=== PATIENT | female | born 1965 | race Caucasian/White ===

== ENCOUNTER → 2016-05-18 | Outpatient (CLI) | payer OTHER ==
--- NOTE | 2016-05-18 13:04 | XR ---
EXAMINATION TYPE: XR foot complete LT DATE OF EXAM: 05/18/2016 12:48 PM CLINICAL HISTORY: pain TECHNIQUE: Frontal, lateral and oblique images of the left foot are obtained. COMPARISON: None. FINDINGS: There is no acute fracture/dislocation evident. Degenerative narrowing first metatarsal ph alangeal joint. The overlying soft tissue appears unremarkable. IMPRESSION: There is no acute fracture or dislocation. ICD 10 NO FRACTURE, INITIAL EVALUATION
== END | disposition home or self-care (01) ==
LOC: RADXRMAIN 12:35
PROVIDERS: ATTEND Nurse Practitioner Family
DX: M79.672 Pain in left foot (principal); M10.072 Idiopathic gout, left ankle and foot

== ENCOUNTER → 2020-03-22 | Outpatient (CLI) | payer OTHER ==
--- NOTE | 2020-03-22 11:21 | XR ---
EXAMINATION TYPE: XR foot complete LT DATE OF EXAM: 03/22/2020 COMPARISON: 05/18/2016 HISTORY: 55-year-old female S90.32XA TECHNIQUE: 3 views FINDINGS: 2 fixation screws across the first TMT joint. 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 Moderate degenerative change first MTP joint, progressed from 2017 with greater degree of subchondra l sclerosis and cystic change. Small to moderate-sized plantar calcaneal spur. No acute fracture, sub luxation, or dislocation seen. Mild degenerative change second MTP joint, new from 2017. IMPRESSION: 1. Small to moderate-sized calcaneal heel spur. 2. Moderate first MTP joint OA, progressed from 2017. Mild second MTP joint OA, new from 2017. 3. Interval surgical arthrodesis across the first TMT joint with satisfactory bony fusion. 4. No acute osseous abnormality seen.
== END | disposition home or self-care (01) ==
LOC: RADXRMAIN 10:37 → EDSTATUS 10:45
PROVIDERS: ATTEND Emergency Medicine
DX: M19.072 Primary osteoarthritis, left ankle and foot (principal); M77.32 Calcaneal spur, left foot; Z98.1 Arthrodesis status

== ENCOUNTER → 2020-03-30 | Outpatient (CLI) | payer OTHER ==
--- NOTE | 2020-03-31 09:19 | MM ---
Reason for exam: screening (asymptomatic). Last mammogram was performed 5 years and 6 months ago. History: Patient is postmenopausal. Family history of breast cancer in 2 paternal aunts at age 40. Benign left mammotome panel of the left breast, March 05, 2009. Physical Findings: A clinical breast exam by your physician is recommended on an annual basis and results should be correlated with mammographic findings. MG 3D Screening Mammo W/Cad Bilateral CC and MLO view(s) were taken. Prior study comparison: September 18, 2014, left breast MG work up mamm w CAD LT. September 09, 2014, bilateral MG screening mammo w CAD. There are scattered fibroglandular densities. No significant changes when compared with prior studies. ASSESSMENT: Benign, BI-RAD 2 RECOMMENDATION: Routine screening mammogram of both breasts in 1 year.
== END | disposition home or self-care (01) ==
LOC: RADMAMWWP 11:01
PROVIDERS: ATTEND Family Medicine
DX: Z12.31 Encounter for screening mammogram for malignant neoplasm of breast (principal)
CPT/HCPCS: 77063; 77067

== ENCOUNTER → 2020-04-22 | Outpatient (CLI) | payer OTHER ==
[2020-04-22 09:55] LABS: Basophils # (A) 0.1 k/uL (0-0.2); Basophils % (A) 1 %; Eosinophils # (A) 0.2 k/uL (0-0.7); Eosinophils % (A) 2 %; HCT 44.8 % (34.0-46.0); HGB 15.4 gm/dL (11.4-16.0); Lymphocytes # (A) 2.7 k/uL (1.0-4.8); Lymphocytes % (A) 27 %; MCH 29.4 pg (25.0-35.0); MCHC 34.3 g/dL (31.0-37.0); MCV 85.8 fL (80.0-100.0); Mean Platelet Volume 8.1; Monocytes # (A) 0.5 k/uL (0-1.0); Monocytes % (A) 5 %; Neutrophils # (A) 6.4 k/uL (1.3-7.7); Neutrophils % (A) 64 %; Platelet Count 289 k/uL (150-450); RBC 5.23 m/uL (3.80-5.40); RDW 12.7 % (11.5-15.5); WBC 10.1 k/uL (3.8-10.6)
[2020-04-22 10:24] LABS: Albumin 4.4 g/dL (3.5-5.0); Calcium 10.3 mg/dL (8.4-10.2); Potassium 4.3 mmol/L (3.5-5.1); Total Bilirubin 0.7 mg/dL (0.2-1.3); Total Protein 7.5 g/dL (6.3-8.2)
[2020-04-22 10:39] LABS: T4, Free (Free Thyroxine) 1.14 ng/dL (0.78-2.19)
--- NOTE | 2020-04-22 20:49 | BD ---
EXAMINATION TYPE: Axial Bone Density DATE OF EXAM: 04/22/2020 COMPARISON: NONE CLINICAL HISTORY: Postmenopausal female. Height: 66.2 IN Weight: 246 LBS FRAX RISK QUESTIONS: History of Fracture in Adulthood: LT FOOT FX AGE 51 Secondary Osteoporosis: 3. Menopause before 45: PARTIAL HYST AGE 34 RISK FACTORS HISTORY OF: Family History of Osteoporosis: YES GRANDMOTHER,MOTHER, AUNTS X4 Active: YES Diet low in dairy products/other sources of calcium: YES Postmenopausal woman: PARTIAL HYST AGE 34 MEDICATIONS: Additional Medications: BLOOD PRESSURE MEDS, EXAM MEASUREMENTS: Bone mineral densitometry was performed using the [employer] System. Bone mineral density as measured about the Lumbar spine is: ----- L1-L4(G/cm2): 1.157 T Score Values are as follows: ----- L2: -0.2 ----- L3: 0.1 ----- L4: 0.3 ----- L1-L4: -0.2 Bone mineral density BASELINE Bone mineral density about the R hip (g/cm2): 0.922 Bone mineral density about the L hip (g/cm2): 0.921 T Score values are as follows: -----R Neck: -0.8 -----L Neck: -0.8 -----R Total: -0.4 -----L Total: -0.6 Bone mineral density BASELINE IMPRESSION: Normal (Values between +1 and -1 indicate normal bone mass). Consider repeating this study in 5 year s or sooner if there is some new clinical indication. NOTE: T-SCORE=SD OF THE YOUNG ADULT MEAN.
== END | disposition home or self-care (01) ==
LOC: RADBDWWP 08:44
PROVIDERS: ATTEND Family Medicine
DX: Z13.820 Encounter for screening for osteoporosis (principal); Z00.00 Encounter for general adult medical examination without abnormal findings; E55.9 Vitamin D deficiency, unspecified
CPT/HCPCS: 36415; 77080; 80053; 80061; 82306; 84439; 84443; 85025

== ENCOUNTER → 2021-04-04 | Outpatient (CLI) | payer OTHER ==
--- NOTE | 2021-04-06 12:05 | MM ---
Reason for exam: screening (asymptomatic). Last mammogram was performed 1 year ago. History: Patient is postmenopausal. Family history of breast cancer in 2 paternal aunts at age 40. Benign left mammotome panel of the left breast, March 05, 2009. Physical Findings: A clinical breast exam by your physician is recommended on an annual basis and results should be correlated with mammographic findings. MG 3D Screening Mammo W/Cad Bilateral CC and MLO view(s) were taken. Prior study comparison: March 30, 2020, bilateral MG 3d screening mammo w/cad. September 18, 2014, left breast MG work up mamm w CAD LT. There are scattered fibroglandular densities. No significant changes when compared with prior studies. ASSESSMENT: Negative, BI-RAD 1 RECOMMENDATION: Routine screening mammogram of both breasts in 1 year.
== END | disposition home or self-care (01) ==
LOC: RADMAMWWP 15:13
PROVIDERS: ATTEND Family Medicine
DX: Z12.31 Encounter for screening mammogram for malignant neoplasm of breast (principal); Z80.3 Family history of malignant neoplasm of breast; Z78.0 Asymptomatic menopausal state
CPT/HCPCS: 77063; 77067

== ENCOUNTER → 2022-10-12 | Outpatient (CLI) | payer BC ==
--- NOTE | 2022-10-13 20:19 | MM ---
Reason for Exam: Screening (asymptomatic). Last mammogram was performed 1 year(s) and 6 month(s) ago. Patient History: Menarche at age 12. First Full-Term at age 28. Hysterectomy at age 34. Postmenopausal. 03/05/2009, Benign Core Biopsy on the left side. Paternal aunt had breast cancer, age 40. Paternal aunt had breast cancer, age 40. Risk Values: Billie 5 year model risk: 1.7%. NCI Lifetime model risk: 10.2%. Prior Study Comparison: 09/18/2014 Left Diagnostic Mammogram, [facility]. 03/30/2020 Bilateral Screening Mammogram, [facility]. 04/04/2021 Bilateral Screening Mammogram, [facility]. Tissue Density: The breast tissue is heterogeneously dense. This may lower the sensitivity of mammography. Findings: Analyzed By CAD. Areas of asymmetric density bilaterally remain unchanged. Microclip anterior left breast from prior biopsy. There is no suspicious group of microcalcifications or new suspicious mass in either breast. Overall Assessment: Benign, BI-RAD 2 Management: Screening Mammogram of both breasts in 1 year. . Patient should continue monthly self-breast exams. A clinical breast exam by your physician is recommended on an annual basis. This exam should not preclude additional follow-up of suspicious palpable abnormalities. Note on Billie scores and lifetime risk: 1. A Billie score greater than 3% is considered moderate risk. If this is the case, consider specialist referral to assess eligibility for a risk reducing agent. 2. If overall lifetime risk for the development of breast cancer is 20% or higher, the patient may qualify for future screening with alternating mammogram and breast MRI. Electronically signed and approved by: Parvez Coyle M.D. Radiologist
== END | disposition home or self-care (01) ==
LOC: RADMAMWWP 14:31
PROVIDERS: ATTEND Family Medicine
DX: Z12.31 Encounter for screening mammogram for malignant neoplasm of breast (principal); Z78.0 Asymptomatic menopausal state; Z80.3 Family history of malignant neoplasm of breast
CPT/HCPCS: 77063; 77067

== ENCOUNTER → 2024-07-03 | Outpatient (CLI) | payer BC ==
--- NOTE | 2024-07-04 07:20 | MM ---
Reason for Exam: Screening (asymptomatic). Last mammogram was performed 1 year(s) and 9 month(s) ago. Patient History: Menarche at age 12. First Full-Term at age 28. Hysterectomy at age 34. Postmenopausal. 03/05/2009, Benign Core Biopsy on the left side. Paternal aunt had breast cancer, age 40. Paternal aunt had breast cancer, age 40. Maternal cousin had breast cancer. Risk Values: Billie 5 year model risk: 1.8%. NCI Lifetime model risk: 9.8%. Prior Study Comparison: 03/30/2020 Bilateral Screening Mammogram, [facility]. 04/04/2021 Bilateral Screening Mammogram, [facility]. 10/12/2022 Bilateral MG 3D screening mammo w/cad, [facility]. Tissue Density: The breasts are heterogeneously dense, which may obscure small masses. Findings: Analyzed By CAD. There is no suspicious group of microcalcifications or new suspicious mass in either breast. Overall Assessment: Benign, BI-RAD 2 Management: Screening Mammogram of both breasts in 1 year. . Patient should continue monthly self-breast exams. A clinical breast exam by your physician is recommended on an annual basis. This exam should not preclude additional follow-up of suspicious palpable abnormalities. Note on Billie scores and lifetime risk: 1. A Billie score greater than 3% is considered moderate risk. If this is the case, consider specialist referral to assess eligibility for a risk reducing agent. 2. If overall lifetime risk for the development of breast cancer is 20% or higher, the patient may qualify for future screening with alternating mammogram and breast MRI. [facility], , 07/04/2024 7:17 AM. Electronically signed and approved by: Mejia Bills M.D. Radiologis
--- NOTE | 2024-07-04 08:45 | BD ---
EXAMINATION TYPE: Axial Bone Density DATE OF EXAM: 07/03/2024 CLINICAL HISTORY: 59 years old Female. ICD-10 CODE: Z13.820 SCREENING FOR OSTEOPOROSIS , Additional History: Height: 67 Weight: 163.1 FRAX RISK QUESTIONS: Alcohol (3 or more units per day): no Family History (Parent hip fracture): no Glucocorticoids (More than 3mos): no (Ex: prednisone, prednisolone, methylprednisolone, dexamethasone, and hydrocortisone). History of Fracture in Adulthood: yes Secondary Osteoporosis: 1. Type 1 Diabetes: no 2. Hyperthyroidism: no 3. Menopause before 45: no 4. Malnutrition: no 5. Chronic liver disease: no Rheumatoid Arthritis: no Current Tobacco Use: no RISK FACTORS HISTORY OF: Hip Fracture (Right/Left): no Spine Fracture: no History of Wrist Fracture: no Surgery to Spine/Hip(right/left)/Wrist (right/left): no MEDICATIONS: Thyroid Medications: no Osteoporosis Medications: no EXAM MEASUREMENTS: Bone mineral densitometry was performed using the [employer]. Bone mineral density as measured about the Lumbar spine is: ----- L1-L4(G/cm2): 1.203 T Score Values are as follows: ----- L1: -0.9 ----- L2: 0.1 ----- L3: 0.7 ----- L4: 0.5 ----- L1-L4: 0.2 Z Score Values are as follows: ----- L1: -0.1 ----- L2: 0.9 ----- L3: 1.6 ----- L4: 1.3 ----- L1-L4: 1.0 Bone mineral density has: increased 4.0 % since study of: 04/22/2020 Bone mineral density about the R hip (g/cm2): 0.819 Bone mineral density about the L hip (g/cm2): 0.800 T Score values are as follows: -----R Neck: -1.2 -----L Neck: -1.4 -----R Total: -1.5 -----L Total: -1.6 Z Score values are as follows: -----R Neck: -0.2 -----L Neck: -0.4 -----R Total: -0.8 -----L Total: -1.0 Bone mineral density has: decreased -14.6 % since study of: 04/22/2020 FRAX%s: The graph provided illustrates a 13.4 % chance for a major osteoporotic fx and a 1.1% chance for the hips probability for fx in 10 years time. IMPRESSION: Normal (Values between +1 and -1 indicate normal bone mass). Consider repeating this study in 5 year s or sooner if there is some new clinical indication. NOTE: T-SCORE=SD OF THE YOUNG ADULT MEAN. [facility], , 07/04/2024 8:43 AM
== END | disposition home or self-care (01) ==
LOC: RADMAMWWP 14:44
PROVIDERS: ATTEND Family Medicine
DX: Z12.31 Encounter for screening mammogram for malignant neoplasm of breast (principal); Z13.820 Encounter for screening for osteoporosis; M85.89 Other specified disorders of bone density and structure, multiple sites; R92.333 Mammographic heterogeneous density, bilateral breasts; Z78.0 Asymptomatic menopausal state; Z80.3 Family history of malignant neoplasm of breast
CPT/HCPCS: 77063; 77067; 77080

== ENCOUNTER → 2024-08-08 | Outpatient (CLI) | payer BC ==
--- NOTE | 2024-08-11 08:53 | CT ---
EXAMINATION TYPE: CT abdomen wo con DATE OF EXAM: 08/08/2024 5:16 PM COMPARISON: None. CLINICAL INDICATION: Female, 59 years old with history of R10.13 EPIGASTRIC PAIN, Epigastric pain jus t under rib cage running around into back x2 weeks. TECHNIQUE: Axial images with sagittal coronal reformats. Examination of the solid and hollow viscera is limited given the lack of contrast. CT DLP: 287.7 mGycm, Automated exposure control for dose reduction was used. FINDINGS: LUNG BASES: No evidence for nodule. No evidence for infiltrate. LIVER/GB: The gallbladder is surgically absent. No space-occupying hepatic lesion. PANCREAS: No pancreatic mass identified. No inflammatory process seen. SPLEEN: No evidence for splenomegaly. No intrasplenic lesions seen. ADRENALS: No adrenal nodules identified. No evidence for thickening. KIDNEYS: No evidence for renal mass. No nephrolithiasis. No hydronephrosis. BOWEL: The visualized bowel loops are of normal caliber. Lymph nodes: No evidence for adenopathy grea ter than 1 cm. Abdominal aorta: Atheromatous changes seen. No evidence for aneurysm. Other: No significant abnormality. IMPRESSION: NO SIGNIFICANT ABNORMALITY APPRECIATED. [facility], , 08/11/2024 8:51 AM
== END | disposition home or self-care (01) ==
LOC: RADCTMAIN 16:32
PROVIDERS: ATTEND Family Medicine
DX: R10.13 Epigastric pain (principal)
CPT/HCPCS: 74150